=== PATIENT | male | born 1960 | race Caucasian/White ===

== ENCOUNTER 2016-07-23 07:36 | Day surgery (SDC) | payer BC, OTHER ==
[2016-07-16 11:53] VITALS: BMI 21.7
[2016-07-23] MEDS ORDERED: PROPOFOL 20 ML ONE ×2 (07:38)
[2016-07-23 10:05] VITALS: TEMP 97.5
[2016-07-23 10:08] VITALS: PULSE 70
[2016-07-23 10:15] VITALS: BP 101/65
== END 2016-07-23 09:15 | disposition home or self-care (01) ==
LOC: FASU-ENDO 07:36
PROVIDERS: ATTEND Internal Medicine Gastroenterology
PROC: 0DJD8ZZ Inspection of Lower Intestinal Tract, Via Natural or Artificial Opening Endoscopic (ICD-10-PCS; principal; 2016-07-23 08:16)
DX: Z12.11 Encounter for screening for malignant neoplasm of colon (principal); Z80.0 Family history of malignant neoplasm of digestive organs; Z83.71 Family history of colonic polyps